=== PATIENT | female | born 1985 | race Caucasian/White ===

== ENCOUNTER → 2022-08-06 10:51 | Outpatient (CLI) | payer OTHER, SELFPAY ==
--- NOTE | ~2022-08-06 | US_ITS ---
Pelvic ultrasound. Clinical History: First trimester , uncertain dates, vaginal spotting Technique: Realtime transabdominal and transvaginal scanning of the pelvis was performed. Color flow Doppler and Doppler spectral analysis were performed. Findings: The uterus is retroverted, and contains an intrauterine gestation. [place]-rump length of 4 m m corresponds to an estimated gestational age of 6 weeks 1 day. heart rate is 109 bpm. Neither ovary seen. No adnexal mass seen. There is no evidence of free fluid in the cul de sac. Impression: Live intrauterine gestation with estimated gestational age of 6 weeks 1 day. heart rate is 109 bpm. Reviewed, dictated and finalized at location . AIN INSPECTOR Impression: Live intrauterine gestation with estimated gestational age of 6 weeks 1 day. Fe chel heart rate is 109 bpm.
== END ==
PROVIDERS: PCP Obstetrics & Gynecology Gynecology; Visit Provider Obstetrics & Gynecology Gynecology
DX: O26.851 Spotting complicating pregnancy, first trimester (principal); Z3A.01 Less than 8 weeks gestation of pregnancy
CPT/HCPCS: 76817

== ENCOUNTER → 2022-08-14 14:40 | Outpatient (CLI) | payer OTHER, SELFPAY ==
--- NOTE | ~2022-08-14 | US_ITS ---
EXAMINATION: US OB transvaginal DATE: 08/14/2022 15:25 INDICATION: Subchorionic hematoma during first trimester TECHNIQUE: Real-time pelvic transabdominal and transvaginal ultrasound was performed. COMPARISON: 08/06/2022 FINDINGS: The uterus measures 7.6 x 5.4 x 5.8 cm. There is an intrauterine gestational sac. A 7 mm x 3 mm x 6 mm hypoechoic area seen adjacent to the gestational sac which is slightly increased in size . A yolk sac is identified. heart motion is identified measuring 157 beats per minute (bpm) by M-mode Doppler. The crown rump length measures 12 mm, which correlates with an estimated gestat ional age of 7 weeks and 2 day(s) (+/-) 5 day(s). The ovaries are not visualized however no adnexal abnormality is seen. There is no free fluid in the pelvis. IMPRESSION: 1. Live intrauterine with an estimated gestational age of 7 weeks and 2 day(s) (+/-) 5 day( s) and an estimated delivery date of 03/31/2023. 2. Small subchorionic hematoma with slight interval increase in size. Reviewed, dictated and finalized at location L. POLLUTION ENGINEER IMPRESSION: 1. Live intrauterine with an estimated gestational age of 7 weeks and 2 day(s) (+/-) 5 day(s) and an estimated delivery date of 03/31/2023. 2. Small subchorionic hematoma with slight interval increase in size.
== END ==
PROVIDERS: PCP Obstetrics & Gynecology Gynecology; Visit Provider Obstetrics & Gynecology Gynecology
DX: O26.851 Spotting complicating pregnancy, first trimester (principal); O36.8910 Maternal care for other specified fetal problems, first trimester, not applicable or unspecified; Z36.87 Encounter for antenatal screening for uncertain dates; Z3A.00 Weeks of gestation of pregnancy not specified
CPT/HCPCS: 76817

== ENCOUNTER 2022-09-01 13:23 | Outpatient (RCR) | payer OTHER, SELFPAY | END 2022-11-30 23:59 | disposition home or self-care (01) | LOC: ANHLAB 13:23 | PROVIDERS: PCP Obstetrics & Gynecology Gynecology; Visit Provider Obstetrics & Gynecology Gynecology | DX: O26.851 Spotting complicating pregnancy, first trimester (principal); Z3A.00 Weeks of gestation of pregnancy not specified | CPT/HCPCS: 36415; 84702; 85461; 86850; 86900; 86901 ==

== ENCOUNTER → 2022-09-03 15:25 | Outpatient (CLI) | payer OTHER, SELFPAY ==
--- NOTE | ~2022-09-03 | US_ITS ---
EXAMINATION: US OB <= 14 weeks fetus DATE: 09/03/2022 15:49 INDICATION: Subchorionic hematoma in the first trimester. Follow-up. Spotting. TECHNIQUE: Real-time transabdominal and transvaginal pelvic ultrasound was performed. COMPARISON: Ultrasound 08/14/2022, 08/06/2022 FINDINGS: TRANSABDOMINAL ULTRASOUND: The uterus measures 10.9 x 6.4 x 2.6 cm. TRANSVAGINAL ULTRASOUND: There is an intrauterine gestational sac. A yolk sac is identified. The fet al crown rump length measures 3.4 cm, which correlates with an estimated gestational age of 10 weeks and 2 day(s) (+/-) 6 day(s). heart motion is identified measuring 173 beats per minute (bpm) by M-mode Doppler. There is a 1.2 x 0.7 x 0.7 cm subchorionic hematoma. There is a 1.8 x 2.2 x 1.4 cm s ubchorionic hematoma. The ovaries are not visualized. There is no free fluid in the pelvis. IMPRESSION: 1. Single living intrauterine gestation with estimated date of delivery of 03/31/2023 based on the ul trasound from 08/06/2022. 2. Two small subchorionic hematomas. Reviewed, dictated and finalized at location A. E FINISHER IMPRESSION: 1. Single living intrauterine gestation with estimated date of delivery of 03/17 based on the ultrasound from 08/06/2022. 2. Two small subchorionic hematomas.
== END ==
PROVIDERS: PCP Obstetrics & Gynecology Gynecology; Visit Provider Obstetrics & Gynecology Gynecology
DX: O36.8910 Maternal care for other specified fetal problems, first trimester, not applicable or unspecified (principal); Z3A.00 Weeks of gestation of pregnancy not specified
CPT/HCPCS: 76801

== ENCOUNTER → 2022-09-22 15:29 | Outpatient (CLI) | payer OTHER, SELFPAY ==
--- NOTE | ~2022-09-22 | US_ITS ---
EXAMINATION: US OB <= 14 weeks fetus DATE: 09/22/2022 15:51 INDICATION: Subchorionic hematoma follow-up during first trimester TECHNIQUE: Real-time pelvic transabdominal and transvaginal ultrasound was performed. COMPARISON: 09/03/2022 FINDINGS: The uterus measures 11.4 x 9.2 x 10.5 cm. There is an intrauterine gestational sac. There i s a 2.2 x 1.3 x 2.2 subchorionic hematoma without significant change in size. There is a 0.9 x 0.6 x 0.6 cm subchorionic hematoma without significant change in size. A yolk sac is identified. hear t motion is identified measuring 167 beats per minute (bpm) by M-mode Doppler. The crown rump l ength measures 6.5 cm, which correlates with an estimated gestational age of 12 weeks and 6 day(s) (+ /-) 8 day(s). The ovaries are not visualized however no adnexal abnormality is seen. There is no free fluid in the pelvis. IMPRESSION: 1. Live intrauterine with an estimated gestational age of 12 weeks and 6 day(s) (+/-) 8 day (s) and an estimated delivery date of 03/31/2023. 2. Two small subchorionic hematomas without significant change in size. Reviewed, dictated and finalized at location B. SIS INSPECTOR IMPRESSION: 1. Live intrauterine with an estimated gestational age of 12 weeks an d 6 day(s) (+/-) 8 day(s) and an estimated delivery date of 03/31/2023. 2. Two small subchorionic hematomas without significant change in size.
== END ==
PROVIDERS: PCP Obstetrics & Gynecology Gynecology; Visit Provider Obstetrics & Gynecology Gynecology
DX: O36.8910 Maternal care for other specified fetal problems, first trimester, not applicable or unspecified (principal); Z3A.12 12 weeks gestation of pregnancy
CPT/HCPCS: 76801

== ENCOUNTER 2022-09-26 16:41 | Outpatient (CLI) | payer OTHER, SELFPAY ==
[2022-09-26 17:19] LABS: Basophils Absolute Auto 0.1 K/mm3 (0.0-0.1); Basophils Percent Auto 0.5 % (0.2-1.2); Eosinophils Absolute Auto 0.1 K/mm3 (0-0.3); Eosinophils Percent Auto 0.7 % (0-4.4); Hematocrit 40.6 % (37.0-47.0); Hemoglobin 13.8 g/dL (12.0-15.0); Immature Granulocyte Absolute 0.03 K/mm3 (0.00-0.031); Immature Granulocyte Percent A 0.3 % (0-0.5); Lymphocytes Absolute Auto 1.92 K/mm3 (0.9-3.2); Lymphocytes Percent Auto 20.8 % (18.3-44.2); Mean Corpuscular Hemoglobin 31.2 pg (26-34); Mean Corpuscular Volume 91.9 fl (80-100); Mean Platelet Volume 10.8 fl (7.4-10.4); Monocytes Absolute Auto 0.5 K/mm3 (0.1-0.6); Neutrophils Absolute Auto 6.7 K/mm3 (1.3-6.7); Neutrophils Percent Auto 72.7 % (45.5-73.1); Platelet Count Result 172 k/mm3 (150-375); Red Blood Count 4.42 M/mm3 (4.2-5.4); Red Cell Distribution Width 13.5 % (11.5-14.5); White Blood Count 9.2 K/mm3 (4.5-10.0)
[2022-09-26 18:02] LABS: Vitamin D 25 Hydroxy 48.6 ng/mL
[2022-09-26 18:04] LABS: HIV 1/2 Ab P24 Ag Result Negative (Negative)
[2022-09-26 18:08] LABS: Hemoglobin A1C 4.8 % (<5.7)
[2022-09-26 18:19] LABS: Hepatitis B Surface Antigen Negative (Negative); Rubella IgG Antibody 24.7 IU/ML
[2022-09-26 18:31] LABS: Hepatitis C Virus Antibody Negative (Negative)
[2022-09-29 16:44] LABS: Rapid Plasma Reagin Non-Reactive (NonReactive)
== END 2022-09-26 16:42 | disposition home or self-care (01) ==
LOC: ANHLAB 16:43
PROVIDERS: PCP Obstetrics & Gynecology Gynecology; Visit Provider Obstetrics & Gynecology Gynecology
DX: Z36.9 Encounter for antenatal screening, unspecified (principal); Z3A.00 Weeks of gestation of pregnancy not specified
CPT/HCPCS: 36415; 82306; 82728; 83036; 85025; 85055; 86592; 86703; 86762; 86803; 86850; 86900; 86901; 87340; G0432

== ENCOUNTER → 2022-10-07 15:26 | Outpatient (CLI) | payer OTHER, SELFPAY ==
--- NOTE | ~2022-10-07 | US_ITS ---
Pelvic ultrasound. Clinical History: Second trimester , subchorionic hematoma COMPARISON: 09/22/2022 Technique: Realtime transabdominal and transvaginal scanning of the pelvis was performed. Color flow Doppler and Doppler spectral analysis were performed. Findings: The uterus is anteverted, and contains an intrauterine gestation. Placenta located towards the fundus. Subchorionic hematoma measures 2.5 x 0.8 x 1.1 cm. Second much smaller subchronic hematom a measures 5 mm in diameter. [place]-rump length of 9.7 cm corresponds to an estimated gestational age of 15 weeks 3 days. heart rate is 147 bpm. Head circumference is 12.1 cm. Biparietal diameter i s 2.4 cm. Abdominal circumference is 9.7 cm. Femur length is 1.7 cm. The right ovary is not visualized. No significant right ovarian or adnexal mass is seen. The left ovary measures 2.0 x 1.0 x 2.4 cm. No significant left ovarian or adnexal mass is seen. There is no evidence of free fluid in the cul de sac. Impression: Live intrauterine gestation with estimated gestational age of 15 weeks 3 days. heart rate is 14 7 bpm. 2.5 x 0.8 x 1.1 cm, hematoma, mildly decreased from prior exam. Additional 0.5 cm subcortical hematom a, also decreased. Reviewed, dictated and finalized at [facility]. CLE CONTROLS ENGINEER Impression: Live intrauterine gestation with estimated gestational age of 15 weeks 3 days. heart rate is 147 bpm. 2.5 x 0.8 x 1.1 cm, hematoma, mildly decreased from prior exam. Additional 0.5 cm subcortical hematoma, also decreased.
== END ==
PROVIDERS: PCP Obstetrics & Gynecology Gynecology; Visit Provider Obstetrics & Gynecology Gynecology
DX: O36.8910 Maternal care for other specified fetal problems, first trimester, not applicable or unspecified (principal); Z3A.15 15 weeks gestation of pregnancy
CPT/HCPCS: 76815